=== PATIENT | female | born 1955 | race Caucasian/White ===

== ENCOUNTER 2020-10-17 14:57 | Outpatient (CLI) | payer BC | END 2020-10-17 14:58 | disposition home or self-care (01) | LOC: BICULT 14:57 | PROVIDERS: ATTEND Internal Medicine Hematology & Oncology | DX: M79.601 Pain in right arm (principal); R60.0 Localized edema ==

== ENCOUNTER 2021-04-13 15:39 | Emergency (ER) | payer BC ==
[2021-04-13 16:41] LABS: #Basophils 0.1 thou/uL (0.0-0.2); #Lymphocytes 1.8 thou/uL (1.20-3.40); #Monocytes 0.3 thou/uL (0.11-0.59); %Basophils 1.7 % (0.0-1.0); %Eosinophils 0.5 % (0.0-10.0); %Lymphocytes 28.6 % (21.0-51.0); %Monocytes 5.2 % (0.0-10.0); Hemoglobin 15.1 g/dL (12.0-16.0); Mean Corpuscular HGB CONC 33.2 g/dL (32.0-36.0); Mean Corpuscular Hemoglobin 31.6 pg (27.0-31.0); Mean Corpuscular Volume 95.2 fL (78.0-98.0); Mean Platelet Volume 6.3 fL (7.4-10.4); Platelet Count 248 thou/uL (130-400); RBC Distribution Width 12.2 % (11.5-14.5); White Blood Cell (WBC) Count 6.3 thou/uL (4.8-10.8)
[2021-04-13 16:54] LABS: ALT (SGPT) 15 U/L (8-55); AST (SGOT) 24 U/L (5-34); Albumin 4.3 g/dL (3.4-4.8); Alkaline Phosphatase 72 U/L (40-110); Anion Gap 16 mmol/L (10-20); BUN (Urea Nitrogen) 10 mg/dL (9.8-20.1); Bilirubin, Total 1.3 mg/dL (0.2-1.2); Calc. Creatinine Clearance 0 mL/min (70-130); Calcium 9.4 mg/dL (7.8-10.44); Carbon Dioxide 25 mmol/L (23-31); Chloride 105 mmol/L (98-107); Globulin 3.1 g/dL (2.4-3.5); Glucose 93 mg/dL (80-115); Potassium 4.6 mmol/L (3.5-5.1); Protein, Total 7.4 g/dL (5.8-8.1); Sodium 141 mmol/L (136-145)
[2021-04-13] MEDS ORDERED: cloNIDine 0.1 MG TAB ONE (18:00)
== END 2021-04-13 19:26 | disposition home or self-care (01) ==
LOC: ERS 15:39
DX: R51.9 Headache, unspecified (principal); R03.0 Elevated blood-pressure reading, without diagnosis of hypertension; Z79.82 Long term (current) use of aspirin
CPT/HCPCS: 36415; 70450; 80053; 84484; 85025; 93005

== ENCOUNTER 2021-06-05 07:58 | Outpatient (CLI) | payer BC | END 2021-06-05 07:59 | disposition home or self-care (01) | LOC: BICMAMMO 07:58 | PROVIDERS: ATTEND Family Medicine | DX: M85.851 Other specified disorders of bone density and structure, right thigh (principal); M85.852 Other specified disorders of bone density and structure, left thigh; M81.0 Age-related osteoporosis without current pathological fracture | CPT/HCPCS: 77080 ==

== ENCOUNTER 2021-06-15 14:35 | Outpatient (CLI) | payer BC | END 2021-06-15 14:36 | disposition home or self-care (01) | LOC: ULT 14:35 | PROVIDERS: ATTEND Internal Medicine | DX: I82.A12 Acute embolism and thrombosis of left axillary vein (principal) ==

== ENCOUNTER 2021-08-15 14:25 | Outpatient (CLI) | payer BC | END 2021-08-15 14:26 | disposition home or self-care (01) | LOC: BICULT 14:25 | PROVIDERS: ATTEND Internal Medicine | DX: M79.621 Pain in right upper arm (principal); M79.622 Pain in left upper arm | CPT/HCPCS: 93970 ==

== ENCOUNTER 2022-10-09 09:24 | Outpatient (CLI) | payer MEDICARE | END 2022-10-09 09:25 | disposition home or self-care (01) | LOC: BICRAD 09:24 | PROVIDERS: ATTEND Family Medicine | DX: M25.522 Pain in left elbow (principal); M79.632 Pain in left forearm ==